=== PATIENT | male | born 1985 | race Caucasian/White ===

== ENCOUNTER 2024-12-15 10:52 | Emergency (ER) | payer OTHER, SELFPAY ==
[2024-12-15 11:01] VITALS: BP 128/88
[2024-12-15 11:20] VITALS: BP 129/95
--- NOTE | 2024-12-15 11:31 | ED.GENMED ---
History of Present Illness
General
Chief Complaint: Heart Rate Problem
Source: patient
Exam Limitations: none
Time Seen by Provider: 12/15/24 11:17
History of Present Illness
History of Present Illness:
39yoM with a history of hyperlipidemia, GERD, and anxiety presenting for evaluation of palpitations. He has had numerous daily episodes over the past 2 weeks in which his heart feels like it is racing. He was seen at [place] ED last week for the
same and had blood work including TSH which were normal. He was diagnosed with PVCs and referred to cardiology. He started with palpitations again this morning around 10:10 AM. His Apple Watch indicated that he was in atrial fibrillation and he
decided to come to the ED. Symptoms resolved prior to initial exam. He did report feeling lightheaded during this episode but denies any syncope. No chest pain or shortness of breath. Of note, patient was seen by a name plate stamper about 2 years ago
for palpitations and nothing specific was found. He had an echocardiogram about a year ago which was reportedly normal. His cardiology appointment is scheduled for next month.
Phy Exam
General Physical Exam
General Presentation: well appearing and no apparent distress
General Skin: warm and dry
General Habitus: normal
General Mental: alert
ENT Exam
ENT Exam: normocephalic
Cardiovascular Exam
Cardiovascular Exam: regular rate/rhythm, no edema and no murmur
Pulmonary Exam
Pulmonary Exam: lungs clear, no respiratory distress, no crackles, no rhonchi and no wheezing
Neurological Exam
Neurological Exam: alert
[place] Coma Scale
Eye Opening: Spontaneous
Verbal Response: Oriented
Motor Response: Obeys Commands
GCS Total Score: 15
Skin Exam
Skin Exam: normal color and warm/dry
Psychiatric Exam
Psychiatric Exam: normal mood/affect
Course
Orders/Labs/Results
Orders:
Orders
12/15/24 10:52
EKG [Electrocardiogram (*1)] Urgent
Reason for Study: Chest Pain
12/15/24 10:53
EKG- Treatment ONCE
Vital Signs
Initial and Last Documented VS:
Initial Vital Signs
Temp Pulse Resp BP Pulse Ox
98.4 F 87 16 128/88 100
12/15/24 11:01 12/15/24 11:01 12/15/24 11:01 12/15/24 11:01 12/15/24 11:01
Last Documented Vital Signs
Temp Pulse Resp BP Pulse Ox
98.4 F 75 15 131/96 100
12/15/24 11:01 12/15/24 12:15 12/15/24 12:15 12/15/24 12:00 12/15/24 12:15
MDM/Problems Addressed
Differential Diagnosis Includes:
39yoM here with intermittent palpitations x 2 weeks. Apple Watch indicated afib today so he came to the ED. Now asymptomatic. VSS. He is well-appearing in no acute distress. Exam reassuring. Differential diagnosis includes but is not limited to:
Arrhythmia, electrolyte abnormality, doubt thyroid issue given normal TSH last week
Triage EKG shows sinus tachycardia with PACs versus A-fib. Patient is normal sinus rhythm on the monitor with PACs during exam. EKG sent to cardiology for review as well as patient's rhythm strip from his Apple Watch. Per Dr. Giles, his EKG
here does not look like afib but the watch recording does. She recommends starting metoprolol succinate 100mg daily. No indication for anticoagulation as his [id number] score is 0. Patient had normal blood work last week at [place] which I was
able to review on his phone. No indication for repeat labs at this time. Advised close follow-up with cardiology in the outpatient setting. ED return precautions reviewed. Patient in agreement with plan and was discharged in stable condition.
*EKG
Interpreted by ED Provider?: Yes
EKG Intrepretation Date: 12/15/24
Heart Rate: 117
Rate: tachycardiac
Rhythm: sinus and PAC's
[place]: normal axis
Interval: normal interval
QRS Pattern: normal QRS
Ischemia: no ischemia
*Critical Care Note
Total Time (30-74mins, 75-104mins- exclusive of procedures): Not Applicable
ED Attending Note
-
Portions of this chart may have been created with voice recognition software.� Occasional wrong word or��sound alike� substitutions may have occurred due to the inherent limitations of voice recognition software.
Discharge Plan
Departure
Patient Disposition: Home (Routine Discharge)
Date of Disposition: 12/15/24
Time of Disposition: 12:04
Patient with high blood pressure during this ER visit?: No
Discharge Problem:
Palpitations
Instructions: Atrial Fibrillation (DC)
Prescriptions:
New
metoprolol succinate 100 mg tablet extended release 24 hr
100 mg PO DAILY Qty: 30 0RF
Referrals:
Mayur Giles MD [Active] -
Mushtaq Palencia DO [Family Provider] -
Activity Restrictions/Additional Instructions:
Take metoprolol as prescribed.
The cardiology office should call you to schedule a follow-up. Please call on Tuesday if you do not hear anything.
Return to the ER with any new or worsening symptoms including dizziness, passing out, or uncontrolled heart rate.
Interventions
Interventions:
*Risk Screen - Suicide Last Done: 12/15/24 11:28
*General Assessment Last Done: 12/15/24 11:28
*Neglect/Abuse Screening Last Done: 12/15/24 11:28
*ED- Fall Risk Assessment Last Done: 12/15/24 11:28
*ED COVID-19 Vaccine History Last Done: 12/15/24 11:28
*Nursing Disposition Last Done: 12/15/24 12:39
ED- Cardiac Assessment Last Done: 12/15/24 11:28
ED- Pulmonary Assessment Last Done: 12/15/24 11:28
Discharge Date and Time
Discharge Date/Time: 12/15/24 12:42
Print Language: IRISH
[2024-12-15 12:00] VITALS: BP 131/96
== END 2024-12-15 12:42 | disposition home or self-care (01) ==
LOC: EMR 10:52
PROVIDERS: EMERGENCY PHYSICIAN Emergency Medicine; FAMILY PHYSICIAN Family Medicine
DX: R00.2 Palpitations (principal); R00.0 Tachycardia, unspecified; E78.5 Hyperlipidemia, unspecified
CPT/HCPCS: 99283; 93005

== ENCOUNTER → 2024-12-28 14:58 | Outpatient (REF) | payer OTHER, SELFPAY | LOC: HWRCS 14:58 | PROVIDERS: ATTENDING PHYSICIAN Internal Medicine; FAMILY PHYSICIAN Family Medicine | DX: I47.10 Supraventricular tachycardia, unspecified (principal) | CPT/HCPCS: 93306 ==